=== PATIENT | female | born 1985 | race Two or more races ===

== ENCOUNTER → 2019-06-29 | Outpatient (CLI) | payer OTHER ==
--- NOTE | 2019-06-30 14:12 | RAD ---
DATE: 06/29/2019 2:05 PM EXAM: DIGITAL DIAGNOSTIC BILATERAL, BREAST LEFT HISTORY: imaging evaluation of a palpable area of concern within the left breast COMPARISON: None Bilateral full field craniocaudal and mediolateral oblique images were obtained using digital technique. This study was interpreted with the benefit of Computerized Aided Detection (CAD). FINDINGS: Breast Density: DENSE The breast Parenchyma is dense, which could reduce the sensitivity of mammography. Breast parenchyma level density D. Benign calcifications are present. No suspicious masses, microcalcifications or architectural distortion is present to suggest malignancy in either breast. The visualized axillae are unremarkable. Given the palpable abnormality, ultrasound was then performed. ULTRASOUND FINDINGS: Targeted ultrasound of the patient detected area of concern was performed. 1:30 position, 7 cm from the nipple: A near anechoic mass of circumscribed margins and internal homogeneous low level echoes is present with parallel orientation and is of oval/round shape. There is no internal vascularity on Doppler interrogation. It demonstrates posterior acoustic enhancement and measures 7 x 6 x 3 mm IMPRESSION: Probable complex cyst within the upper outer left breast BI-RADS CATEGORY: 3 PROBABLY BENIGN FINDING(S)-SHORT INTERVAL FOLLOW-UP SUGGESTED RECOMMENDED FOLLOW-UP: 6M 6 MONTH FOLLOW-UP. Dedicated sonographic follow-up is recommended. PQRS compliance statement: Patient information was entered into a reminder system with a target due date for the next mammogram. Mammography is a sensitive method for finding small breast cancers, but it does not detect them all and is not a substitute for careful clinical examination. A negative mammogram does not negate a clinically suspicious finding and should not result in delay in biopsying a clinically suspicious abnormality. "Our facility is accredited by the [employer] Mammography Program."
== END | disposition home or self-care (01) ==
LOC: MAMMO 13:48
PROVIDERS: ATTEND Physician Assistant
DX: N64.89 Other specified disorders of breast (principal)
CPT/HCPCS: 76641; 77066

== ENCOUNTER → 2019-07-17 | Outpatient (CLI) | payer OTHER ==
--- NOTE | 2019-07-17 11:30 | RAD ---
OB <14 WKS W/TV History: Positive test, IUD Comparison: None. Findings: Multiple sonographic images of the pelvis are submitted. Uterus measured 11.2 x 4.8 x 5.4 cm. There is IUD present in the lower uterine segment/cervical canal. There is a single focus of hypoechogenicity in the uterus. Right ovary measured 2.8 x 2.1 x 1.6. Transvaginal ultrasound: Multiple transvaginal sonographic images of pelvis are submitted. There is again present in the lower uterine segment/cervical canal. There is a single focus of hypoechogenicity in the uterus likely a gestational sac. No pole is visualized although there is apparently a small visible yolk sac. Amniotic fluid volume is within normal limits. Mean sac dimension of 0.5 cm corresponds with 5 weeks 5 days. Adjusted ultrasound age is 5 weeks 5 days with estimated delivery date of 03/13/2020. LMP age is 5 weeks 3 days with estimated delivery date of 03/15/2020. Left ovary measured 2.9 x 1.7 x 1.7 cm, normal low resistance vascularity. There is normal low resistance vascularity of the right ovary which measured about 2.1 x 2.8 x 1.6 cm. No free fluid is demonstrated. Impression: 1. There is a single intrauterine gestational sac with visible yolk sac, no pole demonstrated at this time although may be due to the early age of . Short-term interval follow-up imaging and correlation with quantitative beta hCG values may be beneficial. There is an IUD present in the lower uterine segment/cervical canal. Electronically signed by: Timo Bowen MD (07/17/2019 11:27 AM) [id number]
== END | disposition home or self-care (01) ==
LOC: US 09:54
PROVIDERS: ATTEND Physician Assistant Medical
DX: Z32.01 Encounter for pregnancy test, result positive (principal); Z97.5 Presence of (intrauterine) contraceptive device
CPT/HCPCS: 76801; 76817